=== PATIENT | male | born 1970 | race Caucasian/White ===

== ENCOUNTER 2016-04-27 03:21 | Emergency (ER) | payer BC, OTHER ==
[~2016-04-27] VITALS: Ht 185.4 cm; Wt 99.8 kg
[2016-04-27] VITALS (30 sets, daily range): BP systolic 130–183; BP diastolic 86–168
[~2016-04-27 03:21] MED LIST: AMOXICILLI200 MG/5 M PO; AMOXICILLIN500 MG ORAL; TRAZODONE HCL150 MG ORAL; UNOBMED
--- NOTE | 2016-04-27 03:28 | Emergency Room Report ---
History of Present Illness General Chief Complaint: Altered Level of Consciousness Source: Patient, EMS (Bandar Bowden) Present Illness HPI Patient is a 45-year-old male brought in for increased agitation. Patient had been recently using crystal meth. Patient had been brought in by EMS with [employer] in handcuffs. Patient was noted to have marked agitation. The patient had been previously transported to the hospital for similar symptoms. (Bandar Bowden) Allergies: Coded Allergies: No Known Allergies (Unverified , 12/19/15) Patient History Past Medical History: see triage record Reviewed Nursing Documentation: PMH: Agreed, PSxH: Agreed (Bandar Bowden) Nursing Documentation-PMH Hx Cardiac Problems: No Hx Hypertension: No Hx Pacemaker: No Hx Asthma: No Hx COPD: No Hx Diabetes: No Hx Cancer: No Hx Gastrointestinal Problems: No Hx Dialysis: No Hx Neurological Problems: No Hx Cerebrovascular Accident: No Hx Seizures: No (Bandar Bowden) Review of Systems All Other Systems: negative except mentioned in HPI (Bandar Bowden) Physical Exam Vital Signs Date Time Temp Pulse Resp B/P Pulse Ox O2 Delivery O2 Flow Rate FiO2 04/27/16 03:23 98.1 114 20 174/120 100 Room Air Sp02 EP Interpretation: reviewed, normal General Appearance: normal inspection, well appearing, no apparent distress, alert, GCS 15 Head: atraumatic ENT: normal ENT inspection, hearing grossly normal, normal voice Neck: normal inspection, full range of motion, supple, no bony tend Respiratory: normal inspection, lungs clear, normal breath sounds, no respiratory distress, no retraction, no wheezing Cardiovascular #1: no edema, tachycardia Gastrointestinal: normal inspection, normal bowel sounds, non tender, soft, no guarding, no hernia Genitourinary: no CVA tenderness Musculoskeletal: normal inspection, back normal, normal range of motion Neurologic: normal inspection, alert, oriented x3, responsive, conventions reservationist III-XII nml as tested, speech normal Psychiatric: normal inspection, memory normal, mood/affect normal, anxious Skin: normal inspection, normal color, no rash (Bandar Bowden) Medical Decision Making Diagnostic Impression: Primary Impression: Psychosis Additional Impression: Drug abuse ER Course Patient presented for agitation. Differential diagnoses include substance abuse, psychosis, bipolar disorder, depression, malingering. Because of complexity of patient's case laboratory testing and imaging studies were ordered. Because of the patient's agitation and previous elopement patient was placed in restraints.Patient was given IM Haldol Benadryl and Ativan. The patient had improvement in his agitation. He subsequently removed from restraints. The patient was endorsed to Dr. Morales pending at reevaluation. Labs Test 04/27/16 04:30 04/27/16 04:40 White Blood Count 11.0 K/UL (4.8-10.8) Red Blood Count 5.37 M/UL (4.70-6.10) Hemoglobin 13.9 G/DL (14.2-18.0) Hematocrit 43.3 % (42.0-52.0) Mean Corpuscular Volume 81 FL (80-99) Mean Corpuscular Hemoglobin 25.8 PG (27.0-31.0) Mean Corpuscular Hemoglobin Concent 32.0 G/DL (32.0-36.0) Red Cell Distribution Width 13.0 % (11.6-14.8) Platelet Count 329 K/UL (150-450) Mean Platelet Volume 6.3 FL (6.5-10.1) Neutrophils (%) (Auto) 80.7 % (45.0-75.0) Lymphocytes (%) (Auto) 14.7 % (20.0-45.0) Monocytes (%) (Auto) 3.8 % (1.0-10.0) Eosinophils (%) (Auto) 0.1 % (0.0-3.0) Basophils (%) (Auto) 0.7 % (0.0-2.0) Sodium Level 141 mEQ/L (135-145) Potassium Level 3.8 mEQ/L (3.4-4.9) Chloride Level 97 mEQ/L (98-107) Carbon Dioxide Level 18 mEQ/L (20-30) Anion Gap 26 (5-15) Blood Urea Nitrogen 20 mg/dL (7-23) Creatinine 1.2 mg/dL (0.7-1.2) Estimat Glomerular Filtration Rate > 60 mL/min (>60) Glucose Level 107 mg/dL (74-106) Calcium Level 9.8 mg/dL (8.6-10.2) Total Bilirubin 0.5 mg/dL (0.0-1.2) Aspartate Amino Transf (AST/SGOT) 47 U/L (5-40) Alanine Aminotransferase (ALT/SGPT) 66 U/L (3-41) Alkaline Phosphatase 124 U/L (40-129) Total Creatine Kinase 402 U/L (38-174) Troponin I < 0.30 ng/mL (<=0.30) Total Protein 7.4 g/dL (6.6-8.7) Albumin 4.3 g/dL (3.5-5.2) Globulin 3.1 g/dL Albumin/Globulin Ratio 1.3 (1.0-2.7) Salicylates Level < 1 mg/dL (10-30) Acetaminophen Level < 10 ug/mL (10-30) Serum Alcohol < 10 mg/dL Urine Opiates Screen Negative (NEGATIVE) Urine Barbiturates Screen Negative (NEGATIVE) Phencyclidine (PCP) Screen Negative (NEGATIVE) Urine Amphetamines Screen Positive (NEGATIVE) Urine Benzodiazepines Screen Negative (NEGATIVE) Urine Cocaine Screen Negative (NEGATIVE) Urine Marijuana (THC) Screen Negative (NEGATIVE) (Bandar Bowden) ER Course Please refer to the initial note for the history exam and presentation Patient was given medications and has been resting comfortably Patient's mom also presented Reports that they have from [place] she has had increasingly difficult time controlling her son Patient was at rehabilitation about 6 months ago Has multiple relapses Again mom that the patient has done drugs causing him to become disoriented and aggressive Patient had tested positive for amphetamines as well At this time patient awake alert ambulate without any deficit denies any homicidal or suicidal thoughts Multiple psychiatric facilities were contacted as he does have underlying psychiatric disorder Per the request of mom we did attempt to contact No beds are available and not able to perform evaluation Patient was resting comfortably in the ER At this time mom and the patient requested to go home, patient and mom have had several different avenues and other outpatient processes in the past and will attempt at the patient again is denying any homicidal or suicidal thoughts appears to have had acute psychosis secondary to drug abuse as well And allowed to be discharged per the request, Labs Test 04/27/16 04:30 04/27/16 04:40 White Blood Count 11.0 K/UL (4.8-10.8) Red Blood Count 5.37 M/UL (4.70-6.10) Hemoglobin 13.9 G/DL (14.2-18.0) Hematocrit 43.3 % (42.0-52.0) Mean Corpuscular Volume 81 FL (80-99) Mean Corpuscular Hemoglobin 25.8 PG (27.0-31.0) Mean Corpuscular Hemoglobin Concent 32.0 G/DL (32.0-36.0) Red Cell Distribution Width 13.0 % (11.6-14.8) Platelet Count 329 K/UL (150-450) Mean Platelet Volume 6.3 FL (6.5-10.1) Neutrophils (%) (Auto) 80.7 % (45.0-75.0) Lymphocytes (%) (Auto) 14.7 % (20.0-45.0) Monocytes (%) (Auto) 3.8 % (1.0-10.0) Eosinophils (%) (Auto) 0.1 % (0.0-3.0) Basophils (%) (Auto) 0.7 % (0.0-2.0) Sodium Level 141 mEQ/L (135-145) Potassium Level 3.8 mEQ/L (3.4-4.9) Chloride Level 97 mEQ/L (98-107) Carbon Dioxide Level 18 mEQ/L (20-30) Anion Gap 26 (5-15) Blood Urea Nitrogen 20 mg/dL (7-23) Creatinine 1.2 mg/dL (0.7-1.2) Estimat Glomerular Filtration Rate > 60 mL/min (>60) Glucose Level 107 mg/dL (74-106) Calcium Level 9.8 mg/dL (8.6-10.2) Total Bilirubin 0.5 mg/dL (0.0-1.2) Aspartate Amino Transf (AST/SGOT) 47 U/L (5-40) Alanine Aminotransferase (ALT/SGPT) 66 U/L (3-41) Alkaline Phosphatase 124 U/L (40-129) Total Creatine Kinase 402 U/L (38-174) Troponin I < 0.30 ng/mL (<=0.30) Total Protein 7.4 g/dL (6.6-8.7) Albumin 4.3 g/dL (3.5-5.2) Globulin 3.1 g/dL Albumin/Globulin Ratio 1.3 (1.0-2.7) Salicylates Level < 1 mg/dL (10-30) Acetaminophen Level < 10 ug/mL (10-30) Serum Alcohol < 10 mg/dL Urine Opiates Screen Negative (NEGATIVE) Urine Barbiturates Screen Negative (NEGATIVE) Phencyclidine (PCP) Screen Negative (NEGATIVE) Urine Amphetamines Screen Positive (NEGATIVE) Urine Benzodiazepines Screen Negative (NEGATIVE) Urine Cocaine Screen Negative (NEGATIVE) Urine Marijuana (THC) Screen Negative (NEGATIVE) (CINDY MORALES D.O.) Rhythm Strip Diag. Results EP Interpretation: yes Rate: 66 Rhythm: NSR, no PVC's, no ectopy (CINDY MORALES D.O.) Last Vital Signs Date Time Temp Pulse Resp B/P Pulse Ox O2 Delivery O2 Flow Rate FiO2 04/27/16 03:23 98.1 114 20 174/120 100 Room Air Status: unchanged (Bandar Bowden) Status: improved (CINDY MORALES D.O.) Disposition: HOME, SELF-CARE Condition: Improved Additional Instructions: Patient is provided with the discharge instructions notified to follow up with primary doctor in the next 2-3 days otherwise return to the er with any worsening symptoms. Please note that this report is being documented using [employer] technology. This can lead to erroneous entry secondary to incorrect interpretation by the dictating instrument. Bandar Bowden Apr 27, 2016 03:28 CINDY MORALES D.O. Apr 27, 2016 12:31
[2016-04-27] MEDS ORDERED: Haloperidol 5mg/ml Inj IM ONE (03:30)
[2016-04-27] MEDS ORDERED: LORazepam Inj 2mg/ml 1ml IM ONE (03:30)
[2016-04-27] MEDS ORDERED: DiphenhydrAMINE 50mg/ml Inj IM ONE (03:30)
[2016-04-27 04:37] LABS: BASOPHILS % (AUTO) 0.7 % (0.0-2.0); EOSINOPHILS % (AUTO) 0.1 % (0.0-3.0); LYMPHOCYTES % (AUTO) 14.7 % (20.0-45.0); MEAN CORPUSCULAR HEMOGLOBIN 25.8 PG (27.0-31.0); MEAN CORPUSCULAR VOLUME 81 FL (80-99); MEAN PLATELET VOLUME 6.3 FL (6.5-10.1); MONOCYTES % (AUTO) 3.8 % (1.0-10.0); NEUTROPHILS % (AUTO) 80.7 % (45.0-75.0); PLATELET COUNT 329 K/UL (150-450); RED BLOOD COUNT 5.37 M/UL (4.70-6.10)
[2016-04-27 04:52] LABS: ACETAMINOPHEN < 10 ug/mL (10-30); ALANINE AMINOTRANSFERASE 66 U/L (3-41); ALBUMIN/GLOBULIN RATIO 1.3 (1.0-2.7); ALCOHOL < 10 mg/dL; ANION GAP 26 (5-15); ASPARTATE AMINO TRANSFERASE 47 U/L (5-40); CALCIUM 9.8 mg/dL (8.6-10.2); CARBON DIOXIDE 18 mEQ/L (20-30); CHLORIDE 97 mEQ/L (98-107); CREATININE 1.2 mg/dL (0.7-1.2); GLOMERULAR FILTRATION RATE > 60 mL/min (>60); HEMOLYSIS 17; POTASSIUM 3.8 mEQ/L (3.4-4.9); SODIUM 141 mEQ/L (135-145); TOTAL PROTEIN 7.4 g/dL (6.6-8.7)
[2016-04-27 04:54] LABS: TROPONIN I < 0.30 ng/mL (<=0.30)
[2016-04-27] MEDS ORDERED: AMPHETAMINE SAL20 MG PO (08:24)
[2016-04-27] MEDS ORDERED: QUETIAPINE FUMA50 MG ORAL (08:24)
[2016-04-27] MEDS ORDERED: SEROQUEL25 MG ORAL (08:24)
[2016-04-27] MEDS ORDERED: LORAZEPAM0.5 MG ORAL (08:25)
== END 2016-04-27 12:45 | disposition home or self-care (01) ==
LOC: EDBD 03:21 → EMR 03:28
DX: F29 Unspecified psychosis not due to a substance or known physiological condition (principal); F15.10 Other stimulant abuse, uncomplicated
CPT/HCPCS: 36415; 80053; 80300; 82550; 84484; 85025; 96360; 96372; 99284; G0480; J1200; J1630; J7040; 80329

== ENCOUNTER 2016-06-22 10:58 | Emergency (ER) | payer BC, OTHER ==
[~2016-06-22] VITALS: Ht 185.4 cm; Wt 92.5 kg
[~2016-06-22 10:58] MED LIST changes: +AMPHETAMINE SAL20 MG PO; +LORAZEPAM0.5 MG ORAL; +QUETIAPINE FUMA50 MG ORAL; +SEROQUEL25 MG ORAL
[2016-06-22] MEDS ORDERED: AMOXICILLIN500 MG ORAL (11:34)
[2016-06-22 11:41] VITALS: BP 108/72
[2016-06-22] MEDS ORDERED: CLARITIN-D 241 EACH PO (11:44)
--- NOTE | 2016-06-23 06:57 | Emergency Room Report ---
History of Present Illness General Chief Complaint: Upper Respiratory Illness Source: Patient Present Illness HPI 45-year-old male sent to ED complaining of right-sided jaw pain x2 days. States that he has a "infected tooth" but is not yet seen a dentist. Pain as throbbing, 9/10, nonradiating. No other aggravating or relieving factors. Denies fevers or chills. Patient states he has a runny nose and congestion. Notes history of seasonal allergies. Denies cough. Denies sore throat. Denies earache. No other aggravating or relieving factors. Denies any other associated symptoms Allergies: Coded Allergies: No Known Allergies (Unverified , 12/19/15) Patient History Past Medical History: psych hx Past Surgical History: none Pertinent Family History: none Social History: Denies: alcohol use, drug use, smoking Immunizations: UTD Reviewed Nursing Documentation: PMH: Agreed, PSxH: Agreed Nursing Documentation-PMH Past Medical History: No History, Except For Hx Hypertension: No Hx Pacemaker: No Hx Asthma: No Hx COPD: No Hx Diabetes: No Hx Cancer: No Hx Gastrointestinal Problems: No Hx Dialysis: No History Of Psychiatric Problem: Yes - anxiety, depression Hx Neurological Problems: No Hx Cerebrovascular Accident: No Hx Seizures: No Review of Systems All Other Systems: negative except mentioned in HPI Physical Exam Vital Signs Date Time Temp Pulse Resp B/P Pulse Ox O2 Delivery O2 Flow Rate FiO2 06/22/16 11:03 97.3 99 18 108/72 98 Room Air Sp02 EP Interpretation: reviewed, normal General Appearance: no apparent distress, alert, GCS 15, non-toxic Head: normocephalic Eyes: bilateral eye PERRL, bilateral eye normal inspection ENT: other - multiple dental caries. missing tooth R upper jaw. surrounding erythema/swelling. no fluctuance Neck: full range of motion, supple/symm/no masses Respiratory: normal inspection Cardiovascular #1: normal inspection Gastrointestinal: normal inspection Rectal: deferred Genitourinary: no CVA tenderness Musculoskeletal: normal inspection Neurologic: alert, oriented x3, responsive, motor strength/tone normal, sensory intact, speech normal Psychiatric: judgement/insight normal, memory normal, mood/affect normal, no suicidal/homicidal ideation Skin: normal inspection Lymphatic: normal inspection Medical Decision Making Diagnostic Impression: Primary Impression: Tooth infection Additional Impression: Allergic rhinitis Qualified Codes: J30.2 - Other seasonal allergic rhinitis ER Course 45-year-old male presents ED complaining of tooth pain. Cracked tooth, dental abscess, cavity Patient placed on stretcher. After initial history, physical exam reveals a middle aged male in mild distress. There is a missing tooth in her right upper jaw with surrounding inflammation and erythema. No fluctuance. No surrounding abscess. Diagnosis- tooth infection, allergic rhinitis Stable and discharged to home prescription for amoxicillin, claritin. Instructed to see dentist as a walk-in this week. Return to ED if symptoms recur or worse Last Vital Signs Date Time Temp Pulse Resp B/P Pulse Ox O2 Delivery O2 Flow Rate FiO2 06/22/16 11:41 97.3 18 108/72 98 Room Air 06/22/16 11:06 99 Status: improved Disposition: HOME, SELF-CARE Condition: Stable Scripts Loratadine/Pseudoephedrine (CLARITIN-D 24 HOUR TABLET) 1 Each Tab.er.24h 1 TAB PO DAILY, #30 TAB Prov: CARMEN MILTON M.D. 06/22/16 Amoxicillin* (AMOXIL*) 500 Mg Capsule 500 MG ORAL THREE TIMES A DAY, #21 CAP Prov: CARMEN MILTON M.D. 06/22/16 Patient Instructions: Dental Abscess, [id number] CARMEN MILTON M.D. Jun 23, 2016 06:57
== END 2016-06-22 12:31 | disposition home or self-care (01) ==
LOC: EMR 11:26
DX: K04.7 Periapical abscess without sinus (principal); J30.2 Other seasonal allergic rhinitis; Z86.59 Personal history of other mental and behavioral disorders
CPT/HCPCS: 99284